=== PATIENT | female | born 1980 | race African-American/Black ===

== ENCOUNTER 2022-11-08 20:44 | Emergency (ER) | payer BC ==
[2022-11-08 21:04] VITALS: BP 129/93; PULSE 90; RESP 16; TEMP 98.9; BMI 24.2
[2022-11-08] MEDS ORDERED: IBUPROFEN 600 MG TABLET (FP) PO ONE ×2 (22:06→22:08)
== END 2022-11-08 23:37 | disposition home or self-care (01) ==
LOC: FER 20:44
DX: S82.61XA Displaced fracture of lateral malleolus of right fibula, initial encounter for closed fracture (principal); X50.9XXA Other and unspecified overexertion or strenuous movements or postures, initial encounter
CPT/HCPCS: 73610-TC-RT-FY; 73630-TC-RT-FY; 99283-25